=== PATIENT | female | born 1955 | race Caucasian/White ===

== ENCOUNTER 2024-05-11 12:39 | Inpatient (IN) | payer MEDICAID ==
[~2024-05-11] VITALS: Ht 149.8 cm; Wt 50.3 kg
[2024-05-11 12:58] VITALS: BP 96/57
[2024-05-11] MEDS ORDERED: Albuterol Sulfate 2.5 MG/3 ML VIAL NEB ONE (13:25)
[2024-05-11] MEDS ORDERED: methylPREDNISolone sod succ 125 MG VIAL IM ONE (13:25)
[2024-05-11] MEDS ORDERED: AZITHROMYCIN 250 MG TAB PO ONE (13:25)
[2024-05-11 13:42] LABS: BASO % 0.8 % (0.0-1.0); EOS # 0.5 10*3/uL (0.0-0.4); EOS % 10.5 % (1.0-4.0); LYMPH # 1.1 10*3/uL (1.3-4.4); LYMPH % 21.1 % (27.0-41.0); MEAN CELL VOLUME 97.3 fl (81.0-99.0); MEAN CORPUSCULAR HGB CONC 31.8 g/dl (33.0-37.0); MEAN PLATELET VOLUME 9.9 fl (9.6-12.3); MONO # 0.6 10*3/uL (0.1-1.0); NEUT # 2.9 10*3/uL (2.3-7.9); NEUT % 55.2 % (47.0-73.0); PLATELET COUNT AUTOMATED 212 10*3/uL (130-400); RED BLOOD COUNT 3.39 10*6/uL (4.10-5.10); RED CELL DISTRI WIDTH 14.5 % (0-14.5); WHITE BLOOD COUNT 5.2 10*3/uL (4.8-10.8)
[2024-05-11 14:03] LABS: POTASSIUM 3.7 mmol/L (3.4-5.1)
[2024-05-11 14:07] LABS: ACT PARTIAL THROMBO TIME 46.4 SECONDS (20.0-32.1)
[2024-05-11] MEDS ORDERED: BISACODYL 5 MG TAB PO PRN (17:10)
[2024-05-11] MEDS ORDERED: Ondansetron Hydrochloride 4 MG/2 ML VIAL IV PRN (17:10)
[2024-05-11] MEDS ORDERED: BISACODYL 10 MG SUPP R PRN (17:10)
[2024-05-11] MEDS ORDERED: Magnesium Hydroxide 30 ML UDC PO PRN (17:10)
[2024-05-11] MEDS ORDERED: SODIUM CHLORIDE 0.9% 1,000 ML IV ONE (17:15)
[2024-05-11 17:23] VITALS: BP 106/56
[2024-05-11] MEDS ORDERED: Albuterol Sulf/Ipratropium 3 ML VIAL NEB SCH (17:25)
[2024-05-11] MEDS ORDERED: CETIRIZINE HYDR10 MG PO (17:48)
[2024-05-11] MEDS ORDERED: DULOXETINE HCL30 MG PO (17:49)
[2024-05-11] MEDS ORDERED: HYDROCODONE-AC1 EACH PO (17:50)
[2024-05-11] MEDS ORDERED: METOPROLOL SUCC25 M2 PO (17:50)
[2024-05-11] MEDS ORDERED: RIZATRIPTAN10 M1 PO (17:51)
[2024-05-11] MEDS ORDERED: VITAMIN D250 MCG PO (17:53)
[2024-05-11] MEDS ORDERED: Albuterol Sulfate 2.5 MG/3 ML VIAL NEB SCH (19:30)
[2024-05-11 19:40] VITALS: BP 102/42
[2024-05-11 20:02] VITALS: BP 104/60
[2024-05-11 21:15] VITALS: BP 117/54
[2024-05-11] MEDS ORDERED: GUAIFENESIN 600 MG TAB ER PO SCH (22:00)
[2024-05-11] MEDS ORDERED: TEMAZEPAM 15 MG CAP PO PRN (22:00)
[2024-05-12] VITALS: BP 103/47
[2024-05-12] MEDS ORDERED: ACETAMINOPHEN 325 MG TAB PO PRN (03:55)
[2024-05-12 06:31] LABS: BASO % 0.2 % (0.0-1.0); HEMATOCRIT 29.7 % (37.0-47.0); LYMPH # 0.7 10*3/uL (1.3-4.4); LYMPH % 11.1 % (27.0-41.0); MEAN CELL VOLUME 96.7 fl (81.0-99.0); MEAN CORPUSCULAR HGB 30.6 pg (27.0-31.0); MEAN CORPUSCULAR HGB CONC 31.6 g/dl (33.0-37.0); MEAN PLATELET VOLUME 10.3 fl (9.6-12.3); MONO # 0.3 10*3/uL (0.1-1.0); MONO % 5.5 % (3.0-9.0); NEUT # 5.1 10*3/uL (2.3-7.9); NEUT % 82.7 % (47.0-73.0); PLATELET COUNT AUTOMATED 211 10*3/uL (130-400); RED BLOOD COUNT 3.07 10*6/uL (4.10-5.10); RED CELL DISTRI WIDTH 14.6 % (0-14.5); WHITE BLOOD COUNT 6.2 10*3/uL (4.8-10.8)
[2024-05-12 07:12] LABS: ACT PARTIAL THROMBO TIME 51.1 SECONDS (20.0-32.1)
[2024-05-12 07:25] LABS: BUN 23 mg/dl (9-23); CHLORIDE 107 mmol/L (98-107); CHOLESTEROL 121 mg/dL (<200); LDL CHOLESTEROL 78 mg/dL (9-159); POTASSIUM 4.3 mmol/L (3.4-5.1); TRIGLYCERIDES 82 mg/dl (<150)
[2024-05-12 07:33] LABS: VITAMIN D, 25-HYDROXY 69.3 ng/mL (30-100)
[2024-05-12 08:00] VITALS: BP 103/46
[2024-05-12] MEDS ORDERED: PHYTONADIONE 1 MG/0.5 ML PO ONE (08:00)
[2024-05-12] MEDS ORDERED: Cetirizine Hydrochloride 10 MG TAB PO SCH (10:00)
[2024-05-12] MEDS ORDERED: Duloxetine Hydrochloride 30 MG CAP PO SCH (10:00)
[2024-05-12] MEDS ORDERED: AZITHROMYCIN 250 MG TAB PO SCH (10:00)
[2024-05-12] MEDS ORDERED: methylPREDNISolone sod succ 40 MG VIAL IV SCH (10:00)
[2024-05-12] MEDS ORDERED: CEFDINIR 300 MG CAP PO SCH (10:00)
[2024-05-12] MEDS ORDERED: methylPREDNISolone sod succ 40 MG IV SCH (10:00)
[2024-05-12 10:25] LABS: ALKALINE PHOSPHATASE 58 U/L (46-116); SGPT/ALT 7 U/L (5-49)
[2024-05-12 12:00] VITALS: BP 113/56
[2024-05-12] MEDS ORDERED: Ceftriaxone Sodium 1 GM in SYRINGE INFUSION 10 ML IV SCH (13:05)
[2024-05-12 16:00] VITALS: BP 116/60
[2024-05-12 20:00] VITALS: BP 123/63; BP 162/83
[2024-05-13 00:46] VITALS: BP 118/67
[2024-05-13 06:09] LABS: BUN 25 mg/dl (9-23); CHLORIDE 107 mmol/L (98-107); POTASSIUM 4.4 mmol/L (3.4-5.1)
[2024-05-13 06:35] LABS: BASO % 0.3 % (0.0-1.0); EOS % 0.4 % (1.0-4.0); HEMATOCRIT 31.6 % (37.0-47.0); LYMPH # 1.4 10*3/uL (1.3-4.4); MEAN CELL VOLUME 97.2 fl (81.0-99.0); MEAN CORPUSCULAR HGB 30.8 pg (27.0-31.0); MEAN CORPUSCULAR HGB CONC 31.6 g/dl (33.0-37.0); MEAN PLATELET VOLUME 10.5 fl (9.6-12.3); MONO # 0.5 10*3/uL (0.1-1.0); MONO % 6.1 % (3.0-9.0); NEUT # 5.8 10*3/uL (2.3-7.9); NEUT % 74.8 % (47.0-73.0); PLATELET COUNT AUTOMATED 254 10*3/uL (130-400); RED BLOOD COUNT 3.25 10*6/uL (4.10-5.10); RED CELL DISTRI WIDTH 14.8 % (0-14.5); WHITE BLOOD COUNT 7.7 10*3/uL (4.8-10.8)
[2024-05-13 08:00] VITALS: BP 129/78
[2024-05-13] MEDS ORDERED: Ketorolac Tromethamine 30 MG/ML VIAL IV ONE (08:45)
[2024-05-13] MEDS ORDERED: Codeine Phosphate/Guaifenesi 10 ML UDC PO SCH (08:49)
[2024-05-13] MEDS ORDERED: BENZONATATE 100 MG CAP PO SCH (08:49)
[2024-05-13] MEDS ORDERED: AZITHROMYCIN 250 ML IV SCH (10:00)
[2024-05-13 12:00] VITALS: BP 109/74
[2024-05-13 16:00] VITALS: BP 135/60
[2024-05-13 20:00] VITALS: BP 112/73
[2024-05-14] VITALS: BP 113/63
[2024-05-14] MEDS ORDERED: CALCIUM (TUMS) 500MG PO ONE (03:45)
[2024-05-14 08:00] VITALS: BP 115/69
[2024-05-14] MEDS ORDERED: Albuterol Sulfate 2.5 MG/3 ML VIAL NEB PRN (09:25)
[2024-05-14] MEDS ORDERED: ACETAMINOPHEN325 M2 PO (11:20)
[2024-05-14] MEDS ORDERED: DULOXETINE HCL30 MG PO (11:20)
[2024-05-14] MEDS ORDERED: CETIRIZINE HYDR10 MG PO (11:20)
[2024-05-14] MEDS ORDERED: VITAMIN D250 MCG PO (11:20)
[2024-05-14] MEDS ORDERED: DOXYCYCLINE HY100 M3 PO (11:21)
[2024-05-14] MEDS ORDERED: PREDNISONE10 MG PO (11:21)
[2024-05-14] MEDS ORDERED: Coumadin10 MG PO (11:25)
[2024-05-14] MEDS ORDERED: Coumadin5 MG PO (11:26)
== END 2024-05-14 13:06 | disposition home or self-care (01) | DRG 137 ==
LOC: ED 12:39 → EDHOLD 17:05 → 4E 17:05
PROVIDERS: Internal Medicine; Student in an Organized Health Care Education/Training Program; ADMIT Family Medicine; ATTEND Family Medicine
DX: J69.0 Pneumonitis due to inhalation of food and vomit (principal); E87.1 Hypo-osmolality and hyponatremia; Z59.00 Homelessness unspecified; G43.909 Migraine, unspecified, not intractable, without status migrainosus; M79.7 Fibromyalgia; J44.1 Chronic obstructive pulmonary disease with (acute) exacerbation; E86.0 Dehydration; Z20.822 Contact with and (suspected) exposure to COVID-19; K59.00 Constipation, unspecified; F41.9 Anxiety disorder, unspecified; Z96.641 Presence of right artificial hip joint; Z96.652 Presence of left artificial knee joint; D64.9 Anemia, unspecified; R73.9 Hyperglycemia, unspecified; F41.1 Generalized anxiety disorder; F17.210 Nicotine dependence, cigarettes, uncomplicated; Z71.6 Tobacco abuse counseling; Z95.2 Presence of prosthetic heart valve; Z86.73 Personal history of transient ischemic attack (TIA), and cerebral infarction without residual deficits; Z88.8 Allergy status to other drugs, medicaments and biological substances; Z79.899 Other long term (current) drug therapy; Z88.6 Allergy status to analgesic agent; Z98.891 History of uterine scar from previous surgery

== ENCOUNTER 2024-07-31 13:13 | Emergency (ER) | payer MEDICAID ==
[~2024-07-31] VITALS: Ht 149.8 cm; Wt 54.9 kg
[~2024-07-31 13:13] MED LIST: ACETAMINOPHEN325 M2 PO; CETIRIZINE HYDR10 MG PO; Coumadin10 MG PO; Coumadin5 MG PO; DOXYCYCLINE HY100 M3 PO; DULOXETINE HCL30 MG PO; HYDROCODONE-AC1 EACH PO; METOPROLOL SUCC25 M2 PO; PREDNISONE10 MG PO; RIZATRIPTAN10 M1 PO; VITAMIN D250 MCG PO
[2024-07-31] MEDS ORDERED: ACETAMINOPHEN 325 MG TAB PO ONE (13:45)
== END 2024-07-31 16:13 | disposition home or self-care (01) ==
LOC: ED 13:13
DX: S63.502A Unspecified sprain of left wrist, initial encounter (principal); S80.01XA Contusion of right knee, initial encounter; S30.0XXA Contusion of lower back and pelvis, initial encounter; J44.9 Chronic obstructive pulmonary disease, unspecified; I10 Essential (primary) hypertension; F17.200 Nicotine dependence, unspecified, uncomplicated; Z59.00 Homelessness unspecified; Z88.8 Allergy status to other drugs, medicaments and biological substances; Z98.890 Other specified postprocedural states; Z96.651 Presence of right artificial knee joint; V89.9XXA Person injured in unspecified vehicle accident, initial encounter; Y93.89 Activity, other specified; Y92.009 Unspecified place in unspecified non-institutional (private) residence as the place of occurrence of the external cause; Y99.8 Other external cause status